=== PATIENT | female | born 1950 | race Caucasian/White ===

== ENCOUNTER 2018-10-10 09:24 | Emergency (ER) | payer MEDICARE, SELFPAY | END 2018-10-10 10:42 | disposition home or self-care (01) | LOC: ERS 09:24 | DX: S80.861A Insect bite (nonvenomous), right lower leg, initial encounter (principal); I10 Essential (primary) hypertension; F17.210 Nicotine dependence, cigarettes, uncomplicated; Z79.899 Other long term (current) drug therapy; W57.XXXA Bitten or stung by nonvenomous insect and other nonvenomous arthropods, initial encounter | CPT/HCPCS: 99283 ==

== ENCOUNTER 2019-05-19 06:12 | Observation (INO) | payer MEDICARE ==
[2019-05-16 09:36] VITALS: BMI 31.1
[2019-05-19 06:40] LABS: Hemoglobin 14.5 g/dL (12.0-16.0); Mean Corpuscular HGB CONC 33.8 g/dL (32.0-36.0); Mean Platelet Volume 7.5 fL (7.4-10.4); Platelet Count 201 thou/uL (130-400); RBC Distribution Width 12.1 % (11.5-14.5); Red Blood Cell (RBC) Count 4.28 mill/uL (4.20-5.40); White Blood Cell (WBC) Count 6.2 thou/uL (4.8-10.8)
[2019-05-19] MEDS ORDERED: Clindamycin/D5W 900 mg/50 ml Premix Bag ONE (06:40)
[2019-05-19] MEDS ORDERED: Midazolam HCl 2 mg/2 ml Vial ONE (06:49)
[2019-05-19] MEDS ORDERED: Fentanyl 100 MCG/2 ML VIAL ONE ×3 (06:50→10:04)
[2019-05-19 06:58] LABS: Anion Gap 14 mmol/L (10-20); BUN (Urea Nitrogen) 22 mg/dL (9.8-20.1); Calc. Creatinine Clearance 86 mL/min (70-130); Calcium 9.3 mg/dL (7.8-10.44); Carbon Dioxide 21 mmol/L (23-31); Chloride 106 mmol/L (98-107); Estimated GFR-MDRD 75; Glucose 90 mg/dL (80-115); Sodium 137 mmol/L (136-145)
[2019-05-19] MEDS ORDERED: SUGAMMADEX SODIUM 200 MG/2 ML VIAL ONE (07:29)
[2019-05-19] MEDS ORDERED: Promethazine HCl 25 MG/ML VIAL IM PRN ×2 (08:05→10:08)
[2019-05-19] MEDS ORDERED: Ondansetron HCl/PF 4 MG/2 ML Vial IVP PRN (08:05)
[2019-05-19] MEDS ORDERED: HYDROmorphone 2 MG/ML VIAL SLOW IVP PRN (08:05)
[2019-05-19] MEDS ORDERED: Promethazine HCl 25 MG/ML VIAL SLOW IVP PRN (08:05)
--- NOTE | 2019-05-19 10:00 | OP ---
DATE OF PROCEDURE: 05/19/2019 APPLIED COMPUTER SCIENCE PROFESSOR: Anjelica Rosales PA-C PROCEDURE PERFORMED: Left L2-L3 microdiskectomy. DESCRIPTION OF PROCEDURE: The patient was brought to the operating room and intubated. She was rolled in a prone position on gel-filled chest rolls. An incision was made exposing L2 and L3 on the left and the level was confirmed by x-ray. We performed left L2-L3 hemilaminectomy, where the ligament identified the left L3 nerve root and beneath this was an extruded disk herniation. This was removed in multiple fragments. A complete decompression of left L3 was achieved. The wound was then extensively irrigated and MAC hemostasis was secured. Vancomycin powder was applied and the wound was then closed in anatomic layers. Job ID: [id number]
[2019-05-19] MEDS ORDERED: HYDROcodone/Acetaminophen 10/325 mg Tablet PO PRN (10:08)
[2019-05-19] MEDS ORDERED: traMADol HCl 50 MG TAB PO PRN ×2 (10:08)
[2019-05-19] MEDS ORDERED: Mag-Al 1200 mg/1200 mg/30 ML UDCUP PO PRN (10:08)
[2019-05-19] MEDS ORDERED: Milk Of Magnesia 30 ML UDCUP PO PRN (10:08)
[2019-05-19] MEDS ORDERED: diphenhydrAMINE 50 MG/ML VIAL IVP PRN (10:08)
[2019-05-19] MEDS ORDERED: diphenhydrAMINE 25 MG CAP PO PRN (10:08)
[2019-05-19] MEDS ORDERED: Promethazine HCl 12.5 MG SUPP PR PRN (10:08)
[2019-05-19] MEDS ORDERED: Promethazine 25 MG TAB PO PRN (10:08)
[2019-05-19] MEDS ORDERED: Morphine 4 MG/ML VIAL SLOW IVP PRN (10:08)
[2019-05-19] MEDS ORDERED: tiZANidine HCl 4 MG TAB PO PRN (10:08)
[2019-05-19] MEDS ORDERED: Ondansetron PF 4 MG/2 ML Vial IM PRN (10:09)
[2019-05-19] MEDS ORDERED: HYDROmorphone 0.5 MG/0.5 ML SYRINGE ONE ×2 (10:29→10:45)
[2019-05-19] MEDS ORDERED: Glycopyrrolate 0.2 MG/ML 5 ML SYRINGE ONE (11:22)
[2019-05-19] MEDS ORDERED: Dexamethasone 20 MG/5 ML VIAL ONE (11:22)
[2019-05-19] MEDS ORDERED: PHENYLEPHRINE-NS 100 MCG/ML 10 ML SYRINGE ONE (11:22)
[2019-05-19] MEDS ORDERED: PROPOFOL 200 MG/20 ML VIAL ONE (11:22)
[2019-05-19] MEDS ORDERED: Ketorolac Tromethamine 30 MG/ML VIAL ONE (11:22)
[2019-05-19] MEDS ORDERED: Lidocaine 1% PF 5 ML VIAL ONE (11:22)
[2019-05-19] MEDS ORDERED: Esmolol 100 MG/10 ML VIAL ONE (11:22)
[2019-05-19] MEDS ORDERED: Ondansetron PF 4 MG/2 ML Vial ONE (11:22)
[2019-05-19] MEDS ORDERED: Rocuronium Bromide 10 MG/ML (10ML VIAL) ONE (11:22)
[2019-05-19] MEDS: Sodium Chloride 0.9% 1,000 ML IV SCH ×2 (11:30→23:50)
[2019-05-19] MEDS: HYDROcodone/Acetaminophen 10/325 mg Tablet PO PRN ×2 (14:55→20:21)
--- NOTE | 2019-05-19 16:20 | PDOC.HOSPP ---
- Subjective Encounter Date: 05/19/19 Encounter Time: 16:18 Subjective: Pt seen for followup re: hypertension. c/o back pain. - Objective Vital Signs & Weight: Vital Signs (12 hours) Temp Pulse Resp BP Pulse Ox 05/19/19 11:30 97.3 F L 71 16 112/74 96 Weight Weight 170 lb Result Diagrams: 05/19/19 06:22 05/19/19 06:22 Additional Labs: Labs and MARs reviewed by co Hospitalist ROS - Review of Systems Cardiovascular: denies: chest pain, palpitations, orthopnea, paroxysmal noc. dyspnea, edema, light headedness Musculoskeletal: reports: back pain. denies: neck pain, shoulder pain, arm pain , hand pain, leg pain, foot pain - Medication Medications: Active Medications Generic Name Dose Route Start Last Admin Trade Name Freq PRN Reason Stop Dose Admin Hydrocodone Bitart/Acetaminophen 2 tab 05/19/19 10:08 05/19/19 14:55 [place] 10/325 PO 2 tab Q4H PRN Administration PAIN (4-6) Sodium Chloride 1,000 mls @ 75 mls/hr 05/19/19 10:08 05/19/19 11:30 Normal Saline 0.9% IV 1,000 mls .[id number] RUDI Administration Influenza Virus Vaccine 180 mcg 05/20/19 09:00 05/19/19 14:23 Fluzone High-Dose 2019- Syr IM 05/20/19 09:01 Not Given .ONCE ONE - Exam General Appearance: awake alert Eye: anicteric sclera ENT: moist mucosa Neck: supple Heart: RRR Respiratory: CTAB Gastrointestinal: soft Extremities - other findings: hand contractures, worse on right Musculoskeletal: no muscle wasting Psychiatric: normal affect, normal behavior Hosp A/P (1) HTN (hypertension) Code(s): I10 - ESSENTIAL (PRIMARY) HYPERTENSION Status: Chronic (2) CMT (Pwsdlea-Hdvpu-Adinu disease) Status: Chronic - Plan PT/OT HTN controlled. s/p lumbar spine surgery. PRN IV hydralazine for blood pressure spikes. DVT prophylaxis and pain management per neurosurgery service.
[2019-05-19] MEDS: Morphine 2 MG/ML SYRINGE SLOW IVP PRN (18:14)
[2019-05-20] MEDS: HYDROcodone/Acetaminophen 10/325 mg Tablet PO PRN ×3 (02:55→11:48)
[2019-05-20 07:55] VITALS: BP 103/59; TEMP 98.3
[2019-05-20] MEDS ORDERED: FLU VACC TS2019-20(65YR UP)/PF 180 MCG/0.5 ML SYRINGE IM ONE (09:00)
[2019-05-20] MEDS: Morphine 2 MG/ML SYRINGE SLOW IVP PRN (11:49)
--- NOTE | 2019-05-20 15:22 | DIS ---
DATE OF ADMISSION: 05/19/2019 DATE OF DISCHARGE: 05/20/2019 The patient is a 68-year-old female with a past medical history of [id number], who recently present to our office for worsening left leg pain, was found to have left-sided herniated disk at L2-L3. She underwent left-sided L2-L3 microdiskectomy on 05/18/2018. Following the surgery, she was transitioned to the Med/Surg floor. Her pain has been well controlled with p.o. medication. She is complaining some intermittent numbness in her legs, but she reports that this is not unusual with her CMT. She has been seen up ambulating in the department with her walker without significant difficulty. Her incision has remained clean, dry, and intact. We will plan to dismiss the patient to home later today. I have discussed home care and precautions. We will follow up the patient in 2 weeks in the office. I have provided her with scripts for [place] and Zanaflex. I have also checked DROP PRESS HAND aware and there are no discrepancies noted. She was previously receiving Tylenol No. 4 by her PCP, which we will resume after the initial postoperative period. Job ID: [id number]
== END 2019-05-20 13:16 | disposition home or self-care (01) ==
LOC: SDC 06:12 → SURG A 10:05
PROVIDERS: ADMIT Neurological Surgery; ATTEND Neurological Surgery
PROC: 0SB20ZZ Excision of Lumbar Vertebral Disc, Open Approach (ICD-10-PCS; principal; 2019-05-19)
DX: M51.16 Intervertebral disc disorders with radiculopathy, lumbar region (principal); I10 Essential (primary) hypertension; G60.0 Hereditary motor and sensory neuropathy; Z88.2 Allergy status to sulfonamides; Z79.899 Other long term (current) drug therapy; Z88.1 Allergy status to other antibiotic agents; Z90.49 Acquired absence of other specified parts of digestive tract; Z90.710 Acquired absence of both cervix and uterus; Z98.890 Other specified postprocedural states
CPT/HCPCS: 63030; 76000; 80048; 85027; 93005; 96361; 96374; 96376; 97116; 97139; G0378 ×2; 93010; J1100; J1170; J1885; J2001; J2250; J2270; J2405; J2704; J3010; J3370; J3490

== ENCOUNTER 2019-12-26 13:29 | Outpatient (CLI) | payer MEDICARE ==
--- NOTE | 2019-12-26 16:41 | MRI ---
MRI LUMBAR SPINE WITH AND WITHOUT CONTRAST: 12/26/19 INDICATIONS: Post laminectomy syndrome. Back pain. No comparison. FINDINGS: The lumbar vertebrae maintain normal height. There are degenerative disc changes at L2-3 with loss of disc space. Posterior laminectomy changes are seen at this level with postoperative changes. Slight posterolisthesis. There is abnormal signal in the anterior spinal canal; however, on postcontrast images this shows enh ancement consistent with postoperative change. There is nonenhancing signal seen centrally concerning for a residual or recurrent disc fragment. This does compression the thecal sac. Posterior laminectomy change on the left with enhancement at the operative bed. L3-4: Mild disc bulge and facet hypertrophy. Mild central canal stenosis. L4-5: Slight anterolisthesis. Facet hypertrophy. No central canal or foraminal stenosis. L5-S1: No evidence of significant disc bulge centrally. There is a disc osteophyte complex projecting into the left foramina and projecting laterally to the left which may contact lateral left L5 nerve root. IMPRESSION: Postoperative changes at L2-3 as described above. Signal in the anterior spinal canal is concerning f or residual or recurrent disc fragment. POS: AGW
== END 2019-12-26 13:30 | disposition home or self-care (01) ==
LOC: SCSMRI 13:29
PROVIDERS: ATTEND Specialist
DX: M96.1 Postlaminectomy syndrome, not elsewhere classified (principal); M51.16 Intervertebral disc disorders with radiculopathy, lumbar region; R93.7 Abnormal findings on diagnostic imaging of other parts of musculoskeletal system; Z98.890 Other specified postprocedural states
CPT/HCPCS: 72158

== ENCOUNTER 2020-03-24 13:28 | Outpatient (CLI) | payer MEDICARE ==
--- NOTE | 2020-03-24 14:32 | MRI ---
MR the lumbar spine without contrast INDICATION: 69-year-old female with history of low back surgery and wedge compression fracture of the lumbar spine COMPARISON: MR the lumbar spine with and without contrast dated December 26, 2019 TECHNIQUE: Multiplanar multisequence MR images were obtained of lumbar spine without IV contrast. FINDINGS: Bone marrow: There is mild Modic endplate degenerative change at L2-3 Distal spinal cord and conus: Normal. The conus seen to terminate at L1. Visualized retroperitoneum and paraspinal soft tissues: Normal. Vertebral levels: L5-S1: There is a broad-based disc bulge with a superimposed left foraminal disc protrusion. There is stable mild left neural foraminal narrowing. L4-5: There is stable grade 1 anterolisthesis of L4 and L5. No appreciable central canal or neural fo raminal narrowing is demonstrated. L3-4: There is a broad-based disc bulge with facet hypertrophy inducing mild neural foraminal bilater ally which is stable. L2-3: There is a residual broad-based disc bulge inducing moderate central canal narrowing with moder ate bilateral neural foraminal narrowing which is stable to the prior exam. There is postsurgical change of a left hemilaminectomy at L2-3. There is persistent fluid collection seen within the retail representative ior epidural space at L2-3 extending into the left paraspinal soft tissues. This fluid collection did peripherally enhance on the prior examination and measures 1.5 x 4.9 cm, where previously this co llection measured 2.1 x 4.9 cm. L1-L2: There is a broad-based bulge with facet hypertrophy inducing mild bilateral neural foraminal n arrowing which is stable. T12-L1: No appreciable central canal or neuroforaminal narrowing. IMPRESSION: 1. No evidence for acute fracture. 2. Stable postsurgical change consistent with a left hemilaminectomy at L2-3. There is persistent flu id collection seen within the posterior epidural space at L2-3 extending into the left paraspinal soft tissues. This is nonspecific and may reflect a postoperative seroma; however, small meningocele or possibly a persistent abscess is not entirely excluded. 3. Stable multilevel spondylosis with multilevel neural foraminal narrowing and central canal narrowi ng as above.
--- NOTE | 2020-03-24 15:30 | MRI ---
MRI OF THE LEFT HIP PERFORMED WITHOUT CONTRAST ENHANCEMENT: HISTORY: Left hip pain. History of Jlceikm-Lvyjq-Jmzay disease. FINDINGS: The SI joints are symmetric in appearance. There are no signs of any pelvic insufficiency-type fract ures. Hamstring tendon origins appear unremarkable. Small field of view images of the left hip show a mild left hip joint effusion. I do not see an obvi ous hip labral injury. No signs for avascular necrosis. Gluteus minimus and medius tendon insertions appear unremarkable. Marked atrophy of the tensor fascia hasmukh muscles noted. IMPRESSION: 1. No definitive evidence for any type of labral injury or significant arthritic change to the left hip. There is a mild left hip joint effusion. 2. Severe atrophy of the tensor fascia hasmukh muscle. POS: AH
--- NOTE | 2020-03-24 15:40 | RAD ---
XR Lumbar Spine Min 4 View: 03/24/2020 3:01 PM INDICATION: 69-year-old female with spondylosis and myelopathy COMPARISON: Prior lumbar spine radiograph dated November 19, 2018 FINDINGS: Fracture: None. Alignment: There is mild anterolisthesis of L4 and L5 that is not accentuated with flexion but does p artially reduced with extension. There is mild retrolisthesis of L3 on L4 that is accentuated with extension and is reduced in neutral and flexion positioning. There is mild retrolisthesis of L2 on L3 that is stable with flexion and extension. Retrolisthesis of L1 on L2 is seen with extension but not in the neutral or flexion positioning. Degenerative Change: There is advanced disc degenerative disease at L2-3 with moderate disc degenera tive disease seen at L5-S1, L3-4 and L4-5. Bone Mineralization:Normal Soft tissues: There are moderate vascular calcifications seen involving the visualized vasculature. T here are cholecystectomy clips within the right upper quadrant. Lung bases are clear. IMPRESSION: Severe lumbar spondylosis with abnormal translational motion is above.
== END 2020-03-24 13:29 | disposition home or self-care (01) ==
LOC: BICMRI 13:28
PROVIDERS: ATTEND Specialist
DX: M47.26 Other spondylosis with radiculopathy, lumbar region (principal); M25.552 Pain in left hip; S32.000D Wedge compression fracture of unspecified lumbar vertebra, subsequent encounter for fracture with routine healing; M62.58 Muscle wasting and atrophy, not elsewhere classified, other site; M48.061 Spinal stenosis, lumbar region without neurogenic claudication
CPT/HCPCS: 72110; 72148

== ENCOUNTER 2021-11-17 00:31 | Emergency (ER) | payer OTHER | END 2021-11-17 01:22 | disposition home or self-care (01) | LOC: ERS 00:31 | DX: Z45.2 Encounter for adjustment and management of vascular access device (principal); I10 Essential (primary) hypertension; F17.210 Nicotine dependence, cigarettes, uncomplicated | CPT/HCPCS: 99283 ==

== ENCOUNTER 2023-01-29 14:31 | Outpatient (CLI) | payer MEDICARE | END 2023-01-29 14:32 | disposition home or self-care (01) | LOC: SCSMRI 14:31 | PROVIDERS: ATTEND Specialist | DX: M48.04 Spinal stenosis, thoracic region (principal); M87.9 Osteonecrosis, unspecified; M41.9 Scoliosis, unspecified | CPT/HCPCS: 72146; 72195 ==